=== PATIENT | female | born 1965 | race Two or more races ===

== ENCOUNTER → 2021-05-19 | Outpatient (CLI) | payer BC ==
[~2021-05-19] MED LIST: BUPR15TA; COLA100C2; PAXI40TA
--- NOTE | 2021-05-19 17:52 | REPVR ---
PROCEDURE INFORMATION: Exam: MR Lumbar Spine Without Contrast Exam date and time: 05/19/2021 4:34 PM Age: 56 years old Clinical indication: Low back pain and other: Radiculopathy lumbar region TECHNIQUE: Imaging protocol: Multiplanar magnetic resonance images of the lumbar spine without intravenous contrast. COMPARISON: No relevant prior studies available. FINDINGS: Vertebral body heights are maintained. Mild Modic type 1 edematous degenerative endplate change at L3-L4 and L4-L5. No cord compression. No abnormal cord signal. Conus medullaris terminates at the L1 level. Paravertebral soft tissues are unremarkable. L1-L2: Broad-based disc bulge causes mild canal narrowing and mild bilateral foraminal narrowing. L2-L3: Broad-based disc bulge causes mild canal narrowing and [id number] bilateral foraminal narrowing. L3-L4: Broad-based disc bulge and facet hypertrophy cause mild canal narrowing with moderate left and moderate to severe right foraminal narrowing. L4-L5: Broad-based disc bulge and facet hypertrophy cause mild canal narrowing with severe right and moderate to severe left foraminal narrowing. L5-S1: Facet hypertrophy causes moderate bilateral foraminal narrowing. No significant canal narrowing. IMPRESSION: Multilevel spondylotic changes of the lumbar spine including severe right neural foraminal narrowing at L4-L5, as detailed above. Electronically signed by: Maycol Sanders On 05/19/2021 17:52:22 PM
== END ==
LOC: M PLARAD 14:24
PROVIDERS: ATTEND Orthopaedic Surgery
DX: M54.16 Radiculopathy, lumbar region (principal)